=== PATIENT | male | born 1970 | race African-American/Black ===

== ENCOUNTER 2017-07-26 08:09 | Emergency (ER) | payer MEDICAID ==
[~2017-07-26] VITALS: Ht 177.8 cm; Wt 95.3 kg
[2017-07-26] MEDS ORDERED: cloNIDine HCL 0.1 MG TAB PO ONE (09:00)
[2017-07-26] MEDS ORDERED: SODIUM CHLORIDE 0.9% 1,000 ML IV ONE ×2 (10:11)
[2017-07-26] MEDS ORDERED: MORPHINE SULFATE 4 MG/ML SYR/VIAL IV ONE (10:15)
[2017-07-26] MEDS ORDERED: ONDANSETRON HCL 4 MG/2 ML VIAL IV ONE (10:15)
[2017-07-26 10:27] LABS: Basophils # (auto) 0 uL; Basophils % (auto) 0.4 % (0.0-2.0); Eosinophils # (auto) 0 uL; Hematocrit 48.3 % (41.0-53.0); Hemoglobin 16.2 g/dL (13.5-17.5); Lymphocytes # (auto) 1.3 uL; Lymphocytes % (auto) 14.8 % (10.0-50.0); Mean Corpuscular Hemoglobin 28.8 pg (28.0-32.0); Mean Corpuscular Hgb Conc. 33.5 g/dL (32.0-36.0); Mean Corpuscular Volume 85.8 fL (80.0-100.0); Monocytes # (auto) 0.5 uL; Monocytes % (auto) 5.5 % (0.0-12.0); Neutrophils # (auto) 6.9 uL; Neutrophils % (auto) 79.3 % (37.0-80.0); Nucleated Red Blood Cells % 0.2 %; Platelet Count (auto) 411 10^3/uL (140-450); Red Blood Cells 5.63 10^6/uL (4.5-5.90); Red Cell Distribution Width 14.8 % (11.8-14.3); White Blood Cell 8.7 10^3/uL (4.4-10.8)
[2017-07-26 10:38] LABS: INR 1.02 (0.9-1.15); Partial Thromboplastin Time 25.7 sec (22.64-33.71); Prothrombin Time 11.1 sec (9.37-12.3)
[2017-07-26 10:42] LABS: Alanine Aminotransferase 30 U/L (16-61); Albumin 4.4 g/dL (3.4-5.0); Alkaline Phosphatase 90 U/L (45-117); Anion Gap 9 (5-15); Aspartate Aminotransferase 23 U/L (15-37); BUN/Creatinine Ratio 11.1; Bilirubin, Total 0.7 mg/dL (0.2-1.0); Blood Urea Nitrogen 16 mg/dL (7-18); Calcium 9.2 mg/dL (8.5-10.1); Carbon Dioxide 24 mmol/L (21-32); Chloride 104 mmol/L (98-107); GFR African American 68 mL/min; GFR Non-African American 56 mL/min; Glucose 126 mg/dL (74-106); Potassium 4.1 mmol/L (3.5-5.1); Sodium 137 mmol/L (136-145); Total Protein 9.3 g/dL (6.4-8.2)
[2017-07-26] MEDS ORDERED: LABETALOL HCL 5 MG/ML ML 20ML VIAL IV ONE ×2 (12:45→16:45)
[2017-07-26] MEDS ORDERED: LORazepam 2MG/ML-1ML VIAL IV ONE (12:45)
[2017-07-26] MEDS ORDERED: hydrALAZINE HCL 20 MG/ML VL IV ONE (15:15)
[2017-07-26] MEDS ORDERED: HYDROcodone-ACET 10/325MG TAB PO ONE (15:45)
[2017-07-26 17:40] VITALS: BP 149/106
== END 2017-07-26 18:12 | disposition home or self-care (01) ==
LOC: ER 08:09
DX: I10 Essential (primary) hypertension (principal); R10.13 Epigastric pain
CPT/HCPCS: 36415; 71045; 74176; 80053; 82962; 84484; 85025; 85610; 85730; 93005; 96361; 96374; 96375; 96376; 99285; J0360; J2060; J2270; J2405; J7030

== ENCOUNTER 2017-10-16 16:19 | Inpatient (IN) | payer MEDICAID ==
[~2017-10-16] VITALS: Ht 180.3 cm; Wt 97.0 kg
[2017-10-16 17:11] LABS: Basophils # (auto) 0.1 uL; Basophils % (auto) 1.1 % (0.0-2.0); Eosinophils # (auto) 0.2 uL; Eosinophils % (auto) 1.5 % (0.0-7.0); Hematocrit 38.5 % (41.0-53.0); Hemoglobin 12.9 g/dL (13.5-17.5); Lymphocytes # (auto) 3.3 uL; Lymphocytes % (auto) 31.9 % (10.0-50.0); Mean Corpuscular Hgb Conc. 33.5 g/dL (32.0-36.0); Mean Corpuscular Volume 83.5 fL (80.0-100.0); Monocytes # (auto) 0.7 uL; Monocytes % (auto) 6.7 % (0.0-12.0); Neutrophils % (auto) 58.8 % (37.0-80.0); Nucleated Red Blood Cells % 0.1 %; Platelet Count (auto) 326 10^3/uL (140-450); Red Blood Cells 4.62 10^6/uL (4.5-5.90); White Blood Cell 10.2 10^3/uL (4.4-10.8)
[2017-10-16] MEDS ORDERED: SODIUM CHLORIDE 0.9% 1,000 ML IV SCH (17:13)
[2017-10-16] MEDS ORDERED: LORazepam 0.5 MG TAB PO PRN (17:15)
[2017-10-16] MEDS ORDERED: TEMAZEPAM 15 MG CAP PO PRN (17:15)
[2017-10-16] MEDS ORDERED: MORPHINE SULF INJ 2 MG/ML SYRINGE 1ML IV PRN ×2 (17:15)
[2017-10-16] MEDS ORDERED: NITROGLYCERIN 0.4 MG SL TAB SL PRN (17:15)
[2017-10-16] MEDS ORDERED: ACETAMINOPHEN 500 MG TAB PO PRN (17:15)
[2017-10-16 17:18] LABS: Amphetamine Screen, Urine NEGATIVE (NEGATIVE); Barbiturate Scree,Urine NEGATIVE (NEGATIVE); Benzodiazephine Screen, Urine NEGATIVE (NEGATIVE); Cannabinoid Screen, Urine POSITIVE (NEGATIVE); Cocaine Screen, Urine NEGATIVE (NEGATIVE); Opiate Scree,Urine NEGATIVE (NEGATIVE); Phencyclidine Screen, Urine NEGATIVE (NEGATIVE)
[2017-10-16 17:24] LABS: INR 1.01 (0.9-1.15); Partial Thromboplastin Time 26.1 sec (23.78-33.04); Prothrombin Time 10.8 sec (9.27-12.13)
[2017-10-16 17:33] LABS: Alanine Aminotransferase 28 U/L (16-61); Albumin 3.6 g/dL (3.4-5.0); Alkaline Phosphatase 65 U/L (45-117); Anion Gap 8 (5-15); Aspartate Aminotransferase 15 U/L (15-37); BUN/Creatinine Ratio 12.8; Bilirubin, Total 0.5 mg/dL (0.2-1.0); Blood Urea Nitrogen 15 mg/dL (7-18); Carbon Dioxide 27 mmol/L (21-32); Chloride 105 mmol/L (98-107); GFR African American 86 mL/min; GFR Non-African American 71 mL/min; Glucose 109 mg/dL (74-106); Magnesium 2.3 mg/dL (1.6-2.6); Sodium 140 mmol/L (136-145); Total Protein 7.3 g/dL (6.4-8.2)
[2017-10-16 17:37] LABS: Potassium 2.8 mmol/L (3.5-5.1)
[2017-10-16] MEDS ORDERED: ASPirin 81 mg TAB PO ONE (17:45)
[2017-10-16] MEDS ORDERED: POTASSIUM CHL 20 Meq TABLET PO ONE ×2 (17:45→18:00)
[2017-10-16] MEDS: HYDROcodone-ACET 5/325MG TAB PO PRN (18:05)
[2017-10-16] MEDS: PANTOPRAZOLE 40 MG TAB PO SCH (18:05)
[2017-10-16] MEDS: PROMETHAZINE HCL 25 MG/ML 1ML IV PRN (18:05)
[2017-10-16] MEDS: SOD CHL 0.9%/ KCL 40MEQ 1,000 ML IV SCH (18:05)
[2017-10-16] MEDS: POTASSIUM CHL 20MEQ/100ML 100 ML IV SCH ×2 (18:05→21:26)
[2017-10-16 19:07] LABS: Amylase 84 U/L (25-115); Lipase 203 U/L (73-393)
[2017-10-16 19:45] VITALS: BP 152/100
[2017-10-16 20:00] VITALS: BP 152/100
[2017-10-16] MEDS: ATORVASTATIN 20 MG TAB PO SCH (21:26)
[2017-10-16] MEDS: METOPROLOL TARTRATE 25 MG TAB PO SCH (21:27)
[2017-10-16 22:00] VITALS: BP 152/100
[2017-10-16] MEDS ORDERED: BENA5TAB5 PO (23:54)
[2017-10-17] MEDS: SOD CHL 0.9%/ KCL 40MEQ 1,000 ML IV SCH ×3 (04:26→21:31)
[2017-10-17 05:00] VITALS: BP 139/80
[2017-10-17] MEDS: PROMETHAZINE HCL 25 MG/ML 1ML IV PRN ×2 (05:18→11:35)
[2017-10-17 06:26] LABS: Cholesterol 97 mg/dL (< 200); HDL Cholesterol 37 mg/dL (40-59); LDL Cholesterol 59 mg/dL (< 100); Triglycerides 96 mg/dL (< 150)
[2017-10-17] MEDS ORDERED: AMLO5TAB2 PO (07:52)
[2017-10-17 09:00] VITALS: BP_SYST 137; BP_SYST 157; BP_DIAS 112; BP_DIAS 87
[2017-10-17] MEDS ORDERED: NITROGLYCERIN 0.2MG/HR TOPICAL PATCH TD SCH (10:00)
[2017-10-17] MEDS: ASPirin 81 mg TAB PO SCH (10:01)
[2017-10-17] MEDS: PANTOPRAZOLE 40 MG TAB PO SCH ×2 (10:01→21:30)
[2017-10-17] MEDS: HYDROcodone-ACET 5/325MG TAB PO PRN ×3 (10:01→23:34)
[2017-10-17] MEDS: ENOXAPARIN SOD 40 MG/0.4 ML SYRINGE SC SCH (10:01)
[2017-10-17] MEDS: METOPROLOL TARTRATE 25 MG TAB PO SCH ×2 (10:02→21:31)
[2017-10-17] MEDS ORDERED: IOHEXOL 350 MG/ML 100ML IJ ONE (10:03)
[2017-10-17 13:00] VITALS: BP 150/104
[2017-10-17 13:56] LABS: BUN/Creatinine Ratio 8.4; Calcium 8.4 mg/dL (8.5-10.1)
[2017-10-17 17:00] VITALS: BP 150/180
[2017-10-17] MEDS: NITROGLYCERIN 2% OINT 1GM PKG TD SCH ×2 (17:54→23:34)
[2017-10-17] MEDS: ATORVASTATIN 20 MG TAB PO SCH (21:30)
[2017-10-17 21:58] VITALS: BP 154/109
[2017-10-18] VITALS (7 sets, daily range): BP systolic 119–147; BP diastolic 54–95
[2017-10-18] MEDS: NITROGLYCERIN 2% OINT 1GM PKG TD SCH ×3 (05:51→17:47)
[2017-10-18] MEDS: HYDROcodone-ACET 5/325MG TAB PO PRN (06:47)
[2017-10-18] MEDS: ENALAPRIL MALEATE 2.5 MG TAB PO SCH (09:52)
[2017-10-18] MEDS: ENOXAPARIN SOD 40 MG/0.4 ML SYRINGE SC SCH (09:52)
[2017-10-18] MEDS: METOPROLOL TARTRATE 25 MG TAB PO SCH ×2 (09:53→22:05)
[2017-10-18] MEDS: ASPirin 81 mg TAB PO SCH (09:53)
[2017-10-18] MEDS: PANTOPRAZOLE 40 MG TAB PO SCH ×2 (09:53→22:05)
[2017-10-18] MEDS: SOD CHL 0.9%/ KCL 40MEQ 1,000 ML IV SCH ×2 (10:00→13:20)
[2017-10-18] MEDS: ATORVASTATIN 20 MG TAB PO SCH (22:05)
[2017-10-19] VITALS (7 sets, daily range): BP systolic 122–148; BP diastolic 78–95
[2017-10-19] MEDS: NITROGLYCERIN 2% OINT 1GM PKG TD SCH ×4 (00:07→17:46)
[2017-10-19] MEDS: HYDROcodone-ACET 5/325MG TAB PO PRN (00:08)
[2017-10-19] MEDS: SOD CHL 0.9%/ KCL 40MEQ 1,000 ML IV SCH ×3 (06:00→22:11)
[2017-10-19] MEDS: ENOXAPARIN SOD 40 MG/0.4 ML SYRINGE SC SCH (09:56)
[2017-10-19] MEDS: ENALAPRIL MALEATE 2.5 MG TAB PO SCH (09:57)
[2017-10-19] MEDS: PANTOPRAZOLE 40 MG TAB PO SCH ×2 (09:57→22:07)
[2017-10-19] MEDS: METOPROLOL TARTRATE 25 MG TAB PO SCH ×2 (09:57→22:08)
[2017-10-19] MEDS: ASPirin 81 mg TAB PO SCH (09:57)
[2017-10-19] MEDS: ATORVASTATIN 20 MG TAB PO SCH (22:07)
[2017-10-20] MEDS: HYDROcodone-ACET 5/325MG TAB PO PRN (00:38)
[2017-10-20 05:00] VITALS: BP 137/78
[2017-10-20] MEDS: NITROGLYCERIN 2% OINT 1GM PKG TD SCH ×4 (05:26→19:11)
[2017-10-20 06:29] LABS: Basophils # (auto) 0.1 uL; Basophils % (auto) 0.8 % (0.0-2.0); Eosinophils # (auto) 0.2 uL; Eosinophils % (auto) 3.3 % (0.0-7.0); Hematocrit 35.8 % (41.0-53.0); Hemoglobin 12.1 g/dL (13.5-17.5); Lymphocytes # (auto) 2.7 uL; Lymphocytes % (auto) 37.2 % (10.0-50.0); Mean Corpuscular Hemoglobin 28.7 pg (28.0-32.0); Mean Corpuscular Hgb Conc. 33.9 g/dL (32.0-36.0); Mean Corpuscular Volume 84.6 fL (80.0-100.0); Monocytes # (auto) 0.6 uL; Monocytes % (auto) 8.3 % (0.0-12.0); Neutrophils # (auto) 3.7 uL; Neutrophils % (auto) 50.4 % (37.0-80.0); Nucleated Red Blood Cells % 0.1 %; Platelet Count (auto) 348 10^3/uL (140-450); Red Blood Cells 4.23 10^6/uL (4.5-5.90); White Blood Cell 7.3 10^3/uL (4.4-10.8)
[2017-10-20 06:49] LABS: INR 0.94 (0.9-1.15); Partial Thromboplastin Time 25.9 sec (23.78-33.04); Prothrombin Time 10.1 sec (9.27-12.13)
[2017-10-20 06:56] LABS: Albumin 3.3 g/dL (3.4-5.0); BUN/Creatinine Ratio 10.9; Bilirubin, Total 0.4 mg/dL (0.2-1.0); Calcium 8.7 mg/dL (8.5-10.1); Potassium 4.5 mmol/L (3.5-5.1); Total Protein 6.8 g/dL (6.4-8.2)
[2017-10-20] MEDS: SOD CHL 0.9%/ KCL 40MEQ 1,000 ML IV SCH (07:58)
[2017-10-20 08:18] VITALS: BP 136/99
[2017-10-20] MEDS ORDERED: LIDOCAINE 2% (LOCAL ANESTH.) PF 5ml SDV ONE (10:22)
[2017-10-20] MEDS ORDERED: IODIXANOL 320MG/ML 100ML BTL IV ONE (10:22)
[2017-10-20] MEDS ORDERED: ANGIOMAX 250 MG VIAL IV ONE (10:35)
[2017-10-20] MEDS ORDERED: VERAPAMIL 2.5MG/ML INJ 2ML VIAL IV ONE (10:35)
[2017-10-20] MEDS ORDERED: fentaNYL CITRATE 100 MCG/2 ML VL ONE (10:36)
[2017-10-20] MEDS ORDERED: MIDAZOLAM HCL 1MG/1ML-2 ML VIAL ONE (10:36)
[2017-10-20] MEDS ORDERED: SODIUM CHL 0.9% 0 ML ONE (10:36)
[2017-10-20] MEDS ORDERED: HEPARIN SODIUM (PORCINE) 5000 UNITS/ML 1ML VIAL ONE (11:01)
[2017-10-20] MEDS ORDERED: DEXTROSE (50%) 50ML SYRG IV PRN (12:00)
[2017-10-20] MEDS: PANTOPRAZOLE 40 MG TAB PO SCH ×2 (14:21→21:37)
[2017-10-20] MEDS: ENALAPRIL MALEATE 2.5 MG TAB PO SCH (14:21)
[2017-10-20] MEDS: METOPROLOL TARTRATE 25 MG TAB PO SCH ×2 (14:21→21:37)
[2017-10-20] MEDS: ASPirin 81 mg TAB PO SCH (14:22)
[2017-10-20] MEDS: ENOXAPARIN SOD 40 MG/0.4 ML SYRINGE SC SCH (14:22)
[2017-10-20 14:26] VITALS: BP 158/92
[2017-10-20] MEDS ORDERED: ACCU-CHEK COMFORT CURVE STRIP VI SCH (17:00)
[2017-10-20] MEDS ORDERED: InsuLIN REG 1unit/0.01ml Soln (100units/ml) SC SCH (17:00)
[2017-10-20 17:26] VITALS: BP 144/94
[2017-10-20] MEDS: ATORVASTATIN 20 MG TAB PO SCH (21:37)
[2017-10-20 22:00] VITALS: BP 135/99
[2017-10-21] MEDS: NITROGLYCERIN 2% OINT 1GM PKG TD SCH ×5 (00:35→23:45)
[2017-10-21 05:00] VITALS: BP 112/80
[2017-10-21 06:30] LABS: Basophils # (auto) 0.1 uL; Basophils % (auto) 0.7 % (0.0-2.0); Eosinophils # (auto) 0.3 uL; Eosinophils % (auto) 4.1 % (0.0-7.0); Hematocrit 36.6 % (41.0-53.0); Hemoglobin 12.4 g/dL (13.5-17.5); Lymphocytes # (auto) 2.4 uL; Lymphocytes % (auto) 33.4 % (10.0-50.0); Mean Corpuscular Hemoglobin 28.2 pg (28.0-32.0); Mean Corpuscular Hgb Conc. 33.8 g/dL (32.0-36.0); Mean Corpuscular Volume 83.5 fL (80.0-100.0); Monocytes # (auto) 0.5 uL; Monocytes % (auto) 7.1 % (0.0-12.0); Neutrophils # (auto) 3.9 uL; Neutrophils % (auto) 54.7 % (37.0-80.0); Nucleated Red Blood Cells % 0.2 %; Platelet Count (auto) 376 10^3/uL (140-450); Red Blood Cells 4.38 10^6/uL (4.5-5.90); Red Cell Distribution Width 16.2 % (11.8-14.3); White Blood Cell 7.2 10^3/uL (4.4-10.8)
[2017-10-21 07:08] LABS: Albumin 3.4 g/dL (3.4-5.0); BUN/Creatinine Ratio 13.3; Bilirubin, Total 0.3 mg/dL (0.2-1.0); Calcium 8.5 mg/dL (8.5-10.1); Potassium 4.2 mmol/L (3.5-5.1); Total Protein 7.1 g/dL (6.4-8.2)
[2017-10-21 08:00] VITALS: BP 147/85
[2017-10-21] MEDS: PANTOPRAZOLE 40 MG TAB PO SCH ×2 (10:18→21:39)
[2017-10-21] MEDS: METOPROLOL TARTRATE 25 MG TAB PO SCH ×2 (10:18→21:39)
[2017-10-21] MEDS: ASPirin 81 mg TAB PO SCH (10:19)
[2017-10-21] MEDS: ENOXAPARIN SOD 40 MG/0.4 ML SYRINGE SC SCH (10:19)
[2017-10-21] MEDS: ENALAPRIL MALEATE 2.5 MG TAB PO SCH (10:19)
[2017-10-21 12:51] VITALS: BP 146/100
[2017-10-21] MEDS: HYDROcodone-ACET 5/325MG TAB PO PRN (13:10)
[2017-10-21 18:00] VITALS: BP 134/96
[2017-10-21 18:08] VITALS: BP 146/100
[2017-10-21 18:09] VITALS: BP 145/99
[2017-10-21] MEDS: ATORVASTATIN 20 MG TAB PO SCH (21:39)
[2017-10-22] VITALS (7 sets, daily range): BP systolic 118–140; BP diastolic 40–96
[2017-10-22 06:02] LABS: Basophils # (auto) 0.1 uL; Basophils % (auto) 0.8 % (0.0-2.0); Eosinophils # (auto) 0.3 uL; Eosinophils % (auto) 4.2 % (0.0-7.0); Hematocrit 36.4 % (41.0-53.0); Hemoglobin 12.4 g/dL (13.5-17.5); Lymphocytes # (auto) 2.6 uL; Lymphocytes % (auto) 38.7 % (10.0-50.0); Mean Corpuscular Hemoglobin 28.6 pg (28.0-32.0); Mean Corpuscular Hgb Conc. 34.1 g/dL (32.0-36.0); Monocytes # (auto) 0.5 uL; Monocytes % (auto) 7.6 % (0.0-12.0); Neutrophils # (auto) 3.3 uL; Neutrophils % (auto) 48.7 % (37.0-80.0); Nucleated Red Blood Cells % 0.2 %; Platelet Count (auto) 362 10^3/uL (140-450); Red Blood Cells 4.34 10^6/uL (4.5-5.90); Red Cell Distribution Width 16.4 % (11.8-14.3); White Blood Cell 6.8 10^3/uL (4.4-10.8)
[2017-10-22] MEDS: NITROGLYCERIN 2% OINT 1GM PKG TD SCH ×2 (06:10→12:14)
[2017-10-22 06:14] LABS: Potassium 4.1 mmol/L (3.5-5.1)
[2017-10-22 06:19] LABS: BUN/Creatinine Ratio 12.1; Calcium 8.2 mg/dL (8.5-10.1)
[2017-10-22] MEDS: ENALAPRIL MALEATE 2.5 MG TAB PO SCH (10:00)
[2017-10-22] MEDS: ASPirin 81 mg TAB PO SCH (10:44)
[2017-10-22] MEDS: PANTOPRAZOLE 40 MG TAB PO SCH ×2 (10:44→21:54)
[2017-10-22] MEDS: METOPROLOL TARTRATE 25 MG TAB PO SCH ×2 (10:44→21:54)
[2017-10-22] MEDS: ENOXAPARIN SOD 40 MG/0.4 ML SYRINGE SC SCH (10:45)
[2017-10-22] MEDS: ATORVASTATIN 20 MG TAB PO SCH (21:53)
[2017-10-22] MEDS: SODIUM CHLORIDE 0.9% 1,000 ML IV SCH (21:53)
[2017-10-23 05:04] VITALS: BP 130/84
[2017-10-23 06:01] LABS: INR 0.94 (0.9-1.15); Partial Thromboplastin Time 25.6 sec (23.78-33.04); Prothrombin Time 10.1 sec (9.27-12.13)
[2017-10-23 06:10] LABS: BUN/Creatinine Ratio 14.2; Potassium 4.2 mmol/L (3.5-5.1)
[2017-10-23] MEDS: SODIUM CHLORIDE 0.9% 1,000 ML IV SCH (08:00)
[2017-10-23] MEDS ORDERED: FLUMAZENIL 0.1 MG/ML INJ 10ML MDV IV ONE (08:12)
[2017-10-23] MEDS ORDERED: SODIUM CHLORIDE LOCK 10 ML ONE (08:12)
[2017-10-23] MEDS ORDERED: LIDOCAINE VISCOUS 2% 15ML UD ONE (08:12)
[2017-10-23] MEDS ORDERED: NALOXONE HCL 0.4 MG/ML VIAL ONE (08:12)
[2017-10-23] MEDS ORDERED: diphenhdrAMINE HCL 50 MG/1 ML VL ONE (08:12)
[2017-10-23] MEDS: MIDAZOLAM HCL 5 MG/ML-1ML VIAL ONE ×2 (08:56→08:59)
[2017-10-23] MEDS: fentaNYL CITRATE 100 MCG/2 ML VL ONE ×2 (08:56→08:59)
[2017-10-23 09:00] VITALS: BP 139/93
[2017-10-23] MEDS: ASPirin 81 mg TAB PO SCH (10:09)
[2017-10-23] MEDS: METOPROLOL TARTRATE 25 MG TAB PO SCH (10:10)
[2017-10-23] MEDS: ENALAPRIL MALEATE 2.5 MG TAB PO SCH (10:10)
[2017-10-23] MEDS: PANTOPRAZOLE 40 MG TAB PO SCH (10:10)
[2017-10-23] MEDS: ENOXAPARIN SOD 40 MG/0.4 ML SYRINGE SC SCH (10:11)
[2017-10-23] MEDS: PROMETHAZINE HCL 25 MG/ML 1ML IV PRN (10:11)
[2017-10-23] MEDS ORDERED: PANT40TA2 PO (12:21)
[2017-10-23 13:00] VITALS: BP 133/78
[2017-10-23 17:00] VITALS: BP 136/76
== END 2017-10-23 17:28 | disposition home or self-care (01) | DRG 192 ==
LOC: ER 16:19 → EDBD 16:19 → TELE 16:20 → TELE-WESTW 19:35 → WEST WING 10-22 14:36
PROVIDERS: ADMIT Internal Medicine; ATTEND Internal Medicine
PROC: 4A023N7 Measurement of Cardiac Sampling and Pressure, Left Heart, Percutaneous Approach (ICD-10-PCS; principal; 2017-10-20)
PROC: B2111ZZ Fluoroscopy of Multiple Coronary Arteries using Low Osmolar Contrast (ICD-10-PCS; 2017-10-20)
PROC: B2151ZZ Fluoroscopy of Left Heart using Low Osmolar Contrast (ICD-10-PCS; 2017-10-20)
PROC: 0DB68ZX Excision of Stomach, Via Natural or Artificial Opening Endoscopic, Diagnostic (ICD-10-PCS; 2017-10-23)
DX: R07.89 Other chest pain (principal); N17.0 Acute kidney failure with tubular necrosis; K25.9 Gastric ulcer, unspecified as acute or chronic, without hemorrhage or perforation; K29.70 Gastritis, unspecified, without bleeding; E44.0 Moderate protein-calorie malnutrition; E11.22 Type 2 diabetes mellitus with diabetic chronic kidney disease; E87.6 Hypokalemia; N18.2 Chronic kidney disease, stage 2 (mild); J45.909 Unspecified asthma, uncomplicated; G89.29 Other chronic pain; E83.51 Hypocalcemia; I12.9 Hypertensive chronic kidney disease with stage 1 through stage 4 chronic kidney disease, or unspecified chronic kidney disease; F12.90 Cannabis use, unspecified, uncomplicated; Z79.82 Long term (current) use of aspirin; Z79.899 Other long term (current) drug therapy; Z82.49 Family history of ischemic heart disease and other diseases of the circulatory system; Z68.29 Body mass index [BMI] 29.0-29.9, adult
CPT/HCPCS: 36415; 71045; 71275; 76700; 80048; 80053; 80061; 80307; 82150; 82550; 82962; 83036; 83690; 83735; 83880; 84443; 84484; 85025; 85379; 85610; 85652; 85730; 86141; 93005; 93970; 94761; 96360; 96372; 99152; J2250; J3480; Q9967

== ENCOUNTER 2018-01-27 19:57 | Emergency (ER) | payer MEDICAID ==
[~2018-01-27] VITALS: Ht 180.3 cm; Wt 106.1 kg
[~2018-01-27 19:57] MED LIST: AMLO5TAB13 PO; PANT40TA2 PO
[2018-01-27 21:38] LABS: Basophils # (auto) 0.1 uL; Basophils % (auto) 1.1 % (0.0-2.0); Eosinophils # (auto) 0.4 uL; Eosinophils % (auto) 5.3 % (0.0-7.0); Hematocrit 39.2 % (41.0-53.0); Hemoglobin 13.1 g/dL (13.5-17.5); Lymphocytes # (auto) 2.6 uL; Lymphocytes % (auto) 36.4 % (10.0-50.0); Mean Corpuscular Hemoglobin 27.8 pg (28.0-32.0); Mean Corpuscular Hgb Conc. 33.3 g/dL (32.0-36.0); Mean Corpuscular Volume 83.5 fL (80.0-100.0); Monocytes # (auto) 0.5 uL; Monocytes % (auto) 7.4 % (0.0-12.0); Neutrophils # (auto) 3.5 uL; Neutrophils % (auto) 49.8 % (37.0-80.0); Nucleated Red Blood Cells % 0.2 %; Platelet Count (auto) 334 10^3/uL (140-450); Red Cell Distribution Width 18.9 % (11.8-14.3)
[2018-01-27 21:56] LABS: Albumin 3.4 g/dL (3.4-5.0); Calcium 8.1 mg/dL (8.5-10.1); Potassium 4.2 mmol/L (3.5-5.1)
[2018-01-27 21:58] LABS: BUN/Creatinine Ratio 9.6; INR 0.91 (0.9-1.15); Partial Thromboplastin Time 27.2 sec (23.78-33.04); Prothrombin Time 9.8 sec (9.27-12.13)
[2018-01-27 22:01] LABS: Bilirubin, Total 0.2 mg/dL (0.2-1.0); Total Protein 7.6 g/dL (6.4-8.2)
[2018-01-28 00:41] VITALS: BP 142/95
[2018-01-28] MEDS ORDERED: MORPHINE SULFATE 4 MG/ML SYR/VIAL IV ONE (02:00)
[2018-01-28] MEDS ORDERED: ONDANSETRON HCL 4 MG/2 ML VIAL IV ONE (02:00)
== END 2018-01-28 02:29 | disposition home or self-care (01) ==
LOC: ER 19:57
DX: R07.89 Other chest pain (principal); M79.89 Other specified soft tissue disorders; J45.909 Unspecified asthma, uncomplicated; E11.9 Type 2 diabetes mellitus without complications; K21.9 Gastro-esophageal reflux disease without esophagitis; I10 Essential (primary) hypertension; Z79.899 Other long term (current) drug therapy
CPT/HCPCS: 36415; 71250; 80053; 85025; 85610; 85730; 96374; 96375; 99285; J2270; J2405

== ENCOUNTER 2018-03-12 11:13 | Emergency (ER) | payer MEDICAID ==
[~2018-03-12] VITALS: Ht 177.8 cm; Wt 108.0 kg
[2018-03-12] MEDS ORDERED: PANTOPRAZOLE 40 MG/10 ML VIAL IV STA (11:32)
[2018-03-12] MEDS ORDERED: SODIUM CHLORIDE 0.9% 1,000 ML IVB ONE (11:32)
[2018-03-12] MEDS ORDERED: PROCHLORPERAZINE EDISYLATE 5 MG/ML 2ML VIAL IV ONE (11:45)
[2018-03-12] MEDS ORDERED: MORPHINE SULFATE 4 MG/ML SYR/VIAL IV ONE (11:45)
[2018-03-12 12:06] LABS: Basophils # (auto) 0.1 uL; Basophils % (auto) 1.6 % (0.0-2.0); Eosinophils # (auto) 0 uL; Eosinophils % (auto) 0.2 % (0.0-7.0); Hematocrit 45.7 % (41.0-53.0); Hemoglobin 15.5 g/dL (13.5-17.5); Lymphocytes % (auto) 23.5 % (10.0-50.0); Mean Corpuscular Hemoglobin 28.2 pg (28.0-32.0); Mean Corpuscular Hgb Conc. 33.9 g/dL (32.0-36.0); Mean Corpuscular Volume 83.2 fL (80.0-100.0); Monocytes # (auto) 0.1 uL; Monocytes % (auto) 2.8 % (0.0-12.0); Neutrophils # (auto) 3.1 uL; Neutrophils % (auto) 71.9 % (37.0-80.0); Nucleated Red Blood Cells % 0.1 %; Platelet Count (auto) 287 10^3/uL (140-450); Red Blood Cells 5.49 10^6/uL (4.5-5.90); Red Cell Distribution Width 19.2 % (11.8-14.3); White Blood Cell 4.2 10^3/uL (4.4-10.8)
[2018-03-12 12:28] LABS: Calcium 8.5 mg/dL (8.5-10.1); Magnesium 2.4 mg/dL (1.6-2.6); Potassium 3.6 mmol/L (3.5-5.1)
[2018-03-12 12:33] LABS: Bilirubin, Total 0.8 mg/dL (0.2-1.0); Total Protein 8.2 g/dL (6.4-8.2)
[2018-03-12 13:54] VITALS: BP 157/97
== END 2018-03-12 13:57 | disposition home or self-care (01) ==
LOC: ER 11:13
DX: R11.2 Nausea with vomiting, unspecified (principal); J45.909 Unspecified asthma, uncomplicated; E11.9 Type 2 diabetes mellitus without complications; K21.9 Gastro-esophageal reflux disease without esophagitis; I10 Essential (primary) hypertension; F12.10 Cannabis abuse, uncomplicated; Z92.21 Personal history of antineoplastic chemotherapy
CPT/HCPCS: 36415; 74176; 80053; 82150; 83690; 83735; 85025; 94761; 96361; 96374; 96375; 99284; C9113; J0780; J2270; J7030

== ENCOUNTER 2018-03-14 12:27 | Emergency (ER) | payer MEDICAID ==
[~2018-03-14] VITALS: Ht 177.8 cm; Wt 108.9 kg
[2018-03-14 13:40] LABS: Basophils # (auto) 0.1 uL; Basophils % (auto) 1.3 % (0.0-2.0); Eosinophils # (auto) 0.1 uL; Eosinophils % (auto) 3.1 % (0.0-7.0); Hematocrit 47.3 % (41.0-53.0); Hemoglobin 15.6 g/dL (13.5-17.5); Lymphocytes # (auto) 2.1 uL; Lymphocytes % (auto) 47.7 % (10.0-50.0); Mean Corpuscular Hemoglobin 27.5 pg (28.0-32.0); Mean Corpuscular Hgb Conc. 33.1 g/dL (32.0-36.0); Mean Corpuscular Volume 83.3 fL (80.0-100.0); Monocytes # (auto) 0.1 uL; Monocytes % (auto) 2.5 % (0.0-12.0); Neutrophils % (auto) 45.4 % (37.0-80.0); Nucleated Red Blood Cells % 0.1 %; Platelet Count (auto) 286 10^3/uL (140-450); Red Blood Cells 5.68 10^6/uL (4.5-5.90); Red Cell Distribution Width 17.8 % (11.8-14.3); White Blood Cell 4.3 10^3/uL (4.4-10.8)
[2018-03-14] MEDS ORDERED: ONDANSETRON HCL 4 MG/2 ML VIAL IV ONE (13:45)
[2018-03-14] MEDS ORDERED: amLODIPine BESYLATE 5 MG TAB PO ONE (13:45)
[2018-03-14] MEDS ORDERED: HYDROmorphone HCL 2 MG/ML VL IV ONE (13:45)
[2018-03-14 14:01] LABS: Albumin 4.1 g/dL (3.4-5.0); Calcium 8.9 mg/dL (8.5-10.1); Potassium 3.5 mmol/L (3.5-5.1)
[2018-03-14 14:02] LABS: INR 0.95 (0.9-1.15); Partial Thromboplastin Time 26.6 sec (23.78-33.04); Prothrombin Time 10.2 sec (9.27-12.13)
[2018-03-14 14:05] LABS: BUN/Creatinine Ratio 13.9; Bilirubin, Total 0.9 mg/dL (0.2-1.0); Total Protein 8.5 g/dL (6.4-8.2)
[2018-03-14 14:18] VITALS: BP 146/90
== END 2018-03-14 14:41 | disposition home or self-care (01) ==
LOC: ER 12:27
DX: G89.4 Chronic pain syndrome (principal); E11.9 Type 2 diabetes mellitus without complications; I10 Essential (primary) hypertension; K21.9 Gastro-esophageal reflux disease without esophagitis; F12.10 Cannabis abuse, uncomplicated
CPT/HCPCS: 36415; 80053; 84484; 85025; 85610; 85730; 93005; 94761; 96374; 96375; 99284; J1170; J2405

== ENCOUNTER 2018-07-07 12:42 | Emergency (ER) | payer MEDICAID | END 2018-07-07 13:00 | disposition left against medical advice (07) | LOC: ER 12:53 | DX: R07.9 Chest pain, unspecified (principal); Z53.21 Procedure and treatment not carried out due to patient leaving prior to being seen by health care provider ==

== ENCOUNTER 2019-02-15 12:28 | Emergency (ER) | payer MEDICAID ==
[~2019-02-15] VITALS: Ht 177.8 cm; Wt 105.7 kg
[~2019-02-15 12:28] MED LIST changes: -AMLO5TAB13 PO; +AMLO5TAB15 PO
[2019-02-15 13:43] VITALS: BP 139/97
[2019-02-15] MEDS ORDERED: ACETAMINOPHEN/CODEINE#3 (300/30mg) TAB PO ONE (15:45)
[2019-02-15] MEDS ORDERED: TETRACAINE HCL 0.5% OPTH(EYE) SOLN 4ML LEFTEYE ONE (15:45)
[2019-02-15] MEDS ORDERED: FLUORESCEIN SOD 1 MG TEST STRIP LEFTEYE ONE (15:45)
== END 2019-02-15 16:27 | disposition home or self-care (01) ==
LOC: ER 12:32
DX: S05.02XA Injury of conjunctiva and corneal abrasion without foreign body, left eye, initial encounter (principal); J45.909 Unspecified asthma, uncomplicated; E11.9 Type 2 diabetes mellitus without complications; K21.9 Gastro-esophageal reflux disease without esophagitis; I10 Essential (primary) hypertension; Z79.899 Other long term (current) drug therapy; W22.8XXA Striking against or struck by other objects, initial encounter; Y93.89 Activity, other specified; Y92.89 Other specified places as the place of occurrence of the external cause; Y99.8 Other external cause status

== ENCOUNTER 2019-04-07 09:13 | Emergency (ER) | payer MEDICAID ==
[~2019-04-07] VITALS: Ht 177.8 cm; Wt 106.6 kg
[2019-04-07 09:24] VITALS: BP 122/81
[2019-04-07] MEDS ORDERED: KETOROLAC TROMETH 60MG/2ML VIAL IM ONE (10:15)
[2019-04-07] MEDS ORDERED: METHOCARBAMOL 500 MG TAB PO ONE (10:15)
== END 2019-04-07 10:44 | disposition home or self-care (01) ==
LOC: ER 09:17
DX: M54.41 Lumbago with sciatica, right side (principal); E11.9 Type 2 diabetes mellitus without complications; K21.9 Gastro-esophageal reflux disease without esophagitis; I10 Essential (primary) hypertension; F12.10 Cannabis abuse, uncomplicated; X50.3XXA Overexertion from repetitive movements, initial encounter; Y93.89 Activity, other specified; Y99.8 Other external cause status; Y92.89 Other specified places as the place of occurrence of the external cause
CPT/HCPCS: 93005; 96372; 99283; J1885

== ENCOUNTER 2022-01-14 18:07 | Emergency (ER) | payer MEDICAID ==
[~2022-01-14] VITALS: Ht 177.8 cm; Wt 100.0 kg
[~2022-01-14 18:07] MED LIST changes: +AMLO-489 PO; -AMLO5TAB15 PO
[2022-01-14 21:23] VITALS: BP 125/86
[2022-01-14] MEDS ORDERED: IBUP800T27 PO (22:16)
== END 2022-01-14 22:28 | disposition home or self-care (01) ==
LOC: ER 18:08
DX: M71.521 Other bursitis, not elsewhere classified, right elbow (principal); M25.521 Pain in right elbow; E11.9 Type 2 diabetes mellitus without complications; I10 Essential (primary) hypertension
CPT/HCPCS: 29105; 73080

== ENCOUNTER 2022-04-23 21:37 | Inpatient (IN) | payer MEDICAID ==
[~2022-04-23] VITALS: Ht 177.8 cm; Wt 100.0 kg
[~2022-04-23 21:37] MED LIST changes: +IBUP800T27 PO
[2022-04-23 21:40] VITALS: BP 127/89
[2022-04-23 22:19] LABS: Basophils # (auto) 0.1 10 ^3/uL (0-0.2); Basophils % (auto) 0.8 % (0.0-2.0); Eosinophils # (auto) 0.3 10 ^3/uL (0-0.8); Eosinophils % (auto) 4.1 % (0.0-7.0); Hematocrit 43.6 % (41.0-53.0); Hemoglobin 15.5 g/dL (13.5-17.5); Lymphocytes # (auto) 2.8 10 ^3/uL (0.4-5.4); Lymphocytes % (auto) 35.9 % (10.0-50.0); Mean Corpuscular Hemoglobin 30.3 pg (28.0-32.0); Mean Corpuscular Hgb Conc. 35.4 g/dL (32.0-36.0); Mean Corpuscular Volume 85.4 fL (80.0-100.0); Monocytes # (auto) 0.5 10 ^3/uL (0-1.3); Neutrophils # (auto) 4.1 10 ^3/uL (1.6-8.6); Neutrophils % (auto) 53.2 % (37.0-80.0); Nucleated Red Blood Cells % 0.2 %; Red Blood Cells 5.11 10^6/uL (4.5-5.90); Red Cell Distribution Width 13.2 % (11.8-14.3); White Blood Cell 7.7 10^3/uL (4.4-10.8)
[2022-04-23 22:31] LABS: Albumin 3.9 g/dL (3.4-5.0); BUN/Creatinine Ratio 13.7; Calcium 8.9 mg/dL (8.5-10.1); Magnesium 2.2 mg/dL (1.6-2.6); Potassium 3.3 mmol/L (3.5-5.1)
[2022-04-23 22:34] LABS: Bilirubin, Total 0.6 mg/dL (0.2-1.0)
[2022-04-23 22:52] LABS: INR 0.96 (0.9-1.15); Partial Thromboplastin Time 27.4 sec (24.6-33.4)
[2022-04-24 00:18] LABS: Urine Bacteria NONE SEEN /hpf (None Seen); Urine Blood Negative /uL (Negative); Urine Specific Gravity 1.033 (1.001-1.035); Urine WBC 2 /hpf (0 - 3)
[2022-04-24] MEDS ORDERED: InsuLIN REG 1unit/0.01ml Soln (100units/ml) IV ONE (05:30)
[2022-04-24] MEDS ORDERED: SODIUM CHLORIDE 0.9% 1,000 ML IV ONE (05:30)
[2022-04-24] MEDS ORDERED: MORPHINE SULFATE 4 MG/ML SYR/VIAL IV PRN (05:45)
[2022-04-24] MEDS ORDERED: ZOLPIDEM TARTRATE 5 MG TAB PO PRN (05:45)
[2022-04-24] MEDS ORDERED: NITROGLYCERIN 0.4 MG SL TAB SL PRN (05:45)
[2022-04-24] MEDS ORDERED: DEXTROSE (50%) 50ML SYRG IV PRN (05:45)
[2022-04-24] MEDS ORDERED: LORazepam 0.5 MG TAB PO PRN (05:45)
[2022-04-24] MEDS ORDERED: ONDANSETRON HCL 4 MG/2 ML VIAL IV PRN (05:45)
[2022-04-24] MEDS ORDERED: ACETAMINOPHEN 325 MG TAB PO PRN (05:45)
[2022-04-24] MEDS ORDERED: SOD CHL 0.45% 1,000 ML IV SCH (05:45)
[2022-04-24] MEDS ORDERED: ACCU-CHEK COMFORT CURVE STRIP VI SCH (07:00)
[2022-04-24] MEDS ORDERED: InsuLIN REG 1unit/0.01ml Soln (100units/ml) SC SCH ×2 (07:00→22:00)
[2022-04-24] MEDS ORDERED: DOCUSATE SOD 100 MG CAP PO SCH (10:00)
[2022-04-24] MEDS ORDERED: ENOXAPARIN SOD 100 MG/1 ML SYRINGE SC SCH (10:00)
[2022-04-24] MEDS ORDERED: CLOPIDOGREL BISULFATE 75 MG TAB PO SCH (10:00)
[2022-04-24] MEDS ORDERED: ASPirin 81 mg TAB PO SCH (10:00)
[2022-04-24] MEDS ORDERED: ATORVASTATIN 20 MG TAB PO SCH (22:00)
[2022-04-25] MEDS ORDERED: METF-370 PO (12:45)
[2022-04-25] MEDS ORDERED: CEPH500C PO (12:47)
== END 2022-04-24 10:30 | disposition left against medical advice (07) | DRG 190 ==
LOC: ER 21:37 → TELE 04-24 05:33
PROVIDERS: ADMIT Hospitalist; ATTEND Internal Medicine Pulmonary Disease
DX: I21.4 Non-ST elevation (NSTEMI) myocardial infarction (principal); E11.65 Type 2 diabetes mellitus with hyperglycemia; E66.9 Obesity, unspecified; Z53.29 Procedure and treatment not carried out because of patient's decision for other reasons; I10 Essential (primary) hypertension; Z85.028 Personal history of other malignant neoplasm of stomach; Z88.8 Allergy status to other drugs, medicaments and biological substances; Z68.31 Body mass index [BMI] 31.0-31.9, adult
CPT/HCPCS: 36415; 71045; 80053; 81001; 83735; 83880; 84484; 85025; 85610; 85730; 87426; 93005; G0378

== ENCOUNTER 2022-04-25 11:06 | Emergency (ER) | payer MEDICAID ==
[~2022-04-25] VITALS: Ht 180.3 cm; Wt 99.5 kg
[2022-04-25 11:45] LABS: Basophils # (auto) 0.1 10 ^3/uL (0-0.2); Basophils % (auto) 0.7 % (0.0-2.0); Eosinophils # (auto) 0.2 10 ^3/uL (0-0.8); Eosinophils % (auto) 2.5 % (0.0-7.0); Hematocrit 47.9 % (41.0-53.0); Hemoglobin 16.4 g/dL (13.5-17.5); Lymphocytes # (auto) 2.6 10 ^3/uL (0.4-5.4); Lymphocytes % (auto) 33.8 % (10.0-50.0); Mean Corpuscular Hemoglobin 29.8 pg (28.0-32.0); Mean Corpuscular Hgb Conc. 34.3 g/dL (32.0-36.0); Monocytes # (auto) 0.4 10 ^3/uL (0-1.3); Monocytes % (auto) 5.8 % (0.0-12.0); Neutrophils # (auto) 4.4 10 ^3/uL (1.6-8.6); Neutrophils % (auto) 57.2 % (37.0-80.0); Nucleated Red Blood Cells % 0.1 %; Red Blood Cells 5.51 10^6/uL (4.5-5.90); Red Cell Distribution Width 13.7 % (11.8-14.3); White Blood Cell 7.7 10^3/uL (4.4-10.8)
[2022-04-25] MEDS ORDERED: SODIUM CHLORIDE 0.9% 1,000 ML IV ONE (11:45)
[2022-04-25 12:01] LABS: Urine Bacteria NONE SEEN /hpf (None Seen); Urine Blood Negative /uL (Negative); Urine Hyaline Cast FEW /lpf (0 - 2); Urine Mucus FEW (None Seen); Urine Specific Gravity 1.024 (1.001-1.035); Urine WBC 8 /hpf (0 - 3)
[2022-04-25 12:09] LABS: Albumin 4.3 g/dL (3.4-5.0); BUN/Creatinine Ratio 15.8; Calcium 9.1 mg/dL (8.5-10.1); Potassium 3.3 mmol/L (3.5-5.1)
[2022-04-25 12:12] LABS: Bilirubin, Total 0.7 mg/dL (0.2-1.0); Total Protein 8.7 g/dL (6.4-8.2)
[2022-04-25] MEDS ORDERED: METF-370 PO (12:45)
[2022-04-25] MEDS ORDERED: metFORMIN HYDROCHLORIDE 500 MG TAB PO ONE (12:45)
[2022-04-25] MEDS ORDERED: CEPH500C PO (12:47)
[2022-04-25 14:06] VITALS: BP 131/80
== END 2022-04-25 14:08 | disposition home or self-care (01) ==
LOC: ER 11:06
DX: E11.65 Type 2 diabetes mellitus with hyperglycemia (principal); I10 Essential (primary) hypertension; Z79.1 Long term (current) use of non-steroidal anti-inflammatories (NSAID); Z79.899 Other long term (current) drug therapy; Z88.8 Allergy status to other drugs, medicaments and biological substances
CPT/HCPCS: 36415; 80053; 81001; 82962; 85025; 96360; 99283; J7030

== ENCOUNTER 2022-08-28 11:39 | Emergency (ER) | payer MEDICAID ==
[~2022-08-28] VITALS: Ht 177.8 cm; Wt 90.0 kg
[~2022-08-28 11:39] MED LIST changes: +CEPH500C PO; +METF-370 PO
[2022-08-28 12:07] LABS: Basophils # (auto) 0.1 10 ^3/uL (0-0.2); Basophils % (auto) 0.8 % (0.0-2.0); Eosinophils # (auto) 0 10 ^3/uL (0-0.8); Eosinophils % (auto) 0.4 % (0.0-7.0); Hematocrit 46.1 % (41.0-53.0); Hemoglobin 15.7 g/dL (13.5-17.5); Lymphocytes # (auto) 0.8 10 ^3/uL (0.4-5.4); Lymphocytes % (auto) 12.2 % (10.0-50.0); Mean Corpuscular Hemoglobin 30.1 pg (28.0-32.0); Mean Corpuscular Hgb Conc. 34.2 g/dL (32.0-36.0); Monocytes # (auto) 0.2 10 ^3/uL (0-1.3); Monocytes % (auto) 2.3 % (0.0-12.0); Neutrophils # (auto) 5.7 10 ^3/uL (1.6-8.6); Neutrophils % (auto) 84.3 % (37.0-80.0); Nucleated Red Blood Cells % 0.1 %; Red Blood Cells 5.24 10^6/uL (4.5-5.90); Red Cell Distribution Width 14.5 % (11.8-14.3); White Blood Cell 6.7 10^3/uL (4.4-10.8)
[2022-08-28 12:43] LABS: Albumin 4.3 g/dL (3.4-5.0); Calcium 9.4 mg/dL (8.5-10.1); Magnesium 2.1 mg/dL (1.6-2.6); Potassium 3.9 mmol/L (3.5-5.1)
[2022-08-28 12:46] LABS: BUN/Creatinine Ratio 9.6 (10.0-20.0); Bilirubin, Total 0.5 mg/dL (0.2-1.0)
[2022-08-28 13:36] LABS: Urine Bacteria NONE SEEN /hpf (None Seen); Urine Blood Negative /uL (Negative); Urine Mucus FEW (None Seen); Urine Specific Gravity 1.021 (1.001-1.035); Urine WBC 2 /hpf (0 - 3)
[2022-08-28 13:44] VITALS: BP 146/99
[2022-08-28] MEDS ORDERED: ONDANSETRON ODT 4 MG TAB PO ONE (15:00)
[2022-08-28] MEDS ORDERED: MAALOX PLUS or MAALOX 30 ML PO ONE (15:00)
[2022-08-28] MEDS ORDERED: FAMOTIDINE 20 MG TAB PO ONE (15:00)
[2022-08-28] MEDS ORDERED: LIDOCAINE VISCOUS 2% 15ML UD PO ONE (15:00)
[2022-08-28] MEDS ORDERED: ONDA-144 PO (17:32)
== END 2022-08-28 17:58 | disposition home or self-care (01) ==
LOC: ER 11:39
DX: R11.2 Nausea with vomiting, unspecified (principal); E11.9 Type 2 diabetes mellitus without complications; I10 Essential (primary) hypertension; F12.10 Cannabis abuse, uncomplicated; Z88.6 Allergy status to analgesic agent
CPT/HCPCS: 36415; 71045; 80053; 81001; 83735; 84484; 85025; 93005; 99285; Q0162

== ENCOUNTER 2023-03-13 23:11 | Emergency (ER) | payer MEDICAID ==
[~2023-03-13] VITALS: Ht 175.3 cm; Wt 97.6 kg
[~2023-03-13 23:11] MED LIST changes: -AMLO-489 PO; +AMLO1TAB22 PO; +IBUP-1456 PO; -IBUP800T27 PO; +ONDA-144 PO
[2023-03-14] MEDS ORDERED: HYDROmorphone HCL 2 MG/ML VL/or syr IM ONE
[2023-03-14] MEDS ORDERED: ONDANSETRON ODT 4 MG TAB PO ONE
[2023-03-14 00:39] LABS: Basophils # (auto) 0 10 ^3/uL (0-0.2); Basophils % (auto) 0.3 % (0.0-2.0); Eosinophils # (auto) 0 10 ^3/uL (0-0.8); Eosinophils % (auto) 0.2 % (0.0-7.0); Hematocrit 48.7 % (41.0-53.0); Hemoglobin 16.5 g/dL (13.5-17.5); Lymphocytes # (auto) 1.8 10 ^3/uL (0.4-5.4); Lymphocytes % (auto) 15.4 % (10.0-50.0); Mean Corpuscular Hemoglobin 30.6 pg (28.0-32.0); Mean Corpuscular Hgb Conc. 33.8 g/dL (32.0-36.0); Mean Corpuscular Volume 90.5 fL (80.0-100.0); Monocytes # (auto) 0.7 10 ^3/uL (0-1.3); Monocytes % (auto) 6.3 % (0.0-12.0); Neutrophils % (auto) 77.8 % (37.0-80.0); Nucleated Red Blood Cells % 0.1 %; Red Blood Cells 5.38 10^6/uL (4.5-5.90); Red Cell Distribution Width 14.4 % (11.8-14.3); White Blood Cell 11.6 10^3/uL (4.4-10.8)
[2023-03-14] MEDS ORDERED: IOHEXOL 300 MG/ML 100ML BOTTLE IJ ONE (00:44)
[2023-03-14 01:35] LABS: Urine Bacteria NONE SEEN /hpf (None Seen); Urine Blood 3+ /uL (Negative); Urine Clarity CLOUDY (Clear); Urine Color Red (Yellow); Urine Protein, UAD 2+ (Negative); Urine Urobilinogen Normal (Negative); Urine WBC 520 /hpf (0 - 3); Urine WBC Clumps PRESENT /hpf (None Seen); Urine pH 5.5 (5.0-8.0)
[2023-03-14 01:57] LABS: Alanine Aminotransferase 22 U/L (7-40); Albumin 5.1 g/dL (3.2-4.8); Alkaline Phosphatase 75 U/L (46-116); Anion Gap 13 (5-15); Aspartate Aminotransferase 16 U/L (13-40); BUN/Creatinine Ratio 10.9 (10.0-20.0); Blood Urea Nitrogen 15 mg/dL (9-23); Calcium 9.6 mg/dL (8.7-10.4); Carbon Dioxide 22 mmol/L (20-30); Chloride 103 mmol/L (98-107); Glucose 155 mg/dL (74-106); Lipase 24 U/L (12-53); Potassium 3.2 mmol/L (3.5-5.1); Sodium 138 mmol/L (136-145)
[2023-03-14 01:58] LABS: Bilirubin, Total 0.9 mg/dL (0.2-1.0); Total Protein 8.5 g/dL (5.7-8.2)
[2023-03-14] MEDS ORDERED: ZOFR4T PO (04:29)
[2023-03-14] MEDS ORDERED: CEPH250C PO (04:29)
[2023-03-14] MEDS ORDERED: TAMS-35 PO (04:29)
[2023-03-14] MEDS ORDERED: TAMSULOSIN HYDROCHLORIDE 0.4 MG CAP PO ONE (04:30)
[2023-03-14] MEDS ORDERED: cefTRIAXone SOD 1,000 MG VL IM ONE (04:30)
[2023-03-14 04:34] LABS: Base Excess 1.2 mmol/L (-2.0-2.0)
[2023-03-14] MEDS ORDERED: LIDOCAINE 1% HCL (LOCAL ANESTH.) INJ 20ML MDV ID ONE (04:45)
[2023-03-14 05:00] VITALS: PULSE 72; O2SAT 98
[2023-03-14 05:07] VITALS: BP 133/89; PULSE 72; RESP 20; TEMP 98.2; O2SAT 98
== END 2023-03-14 05:14 | disposition home or self-care (01) ==
LOC: ER 23:11
DX: N30.81 Other cystitis with hematuria (principal); E11.9 Type 2 diabetes mellitus without complications; I10 Essential (primary) hypertension; Z88.6 Allergy status to analgesic agent
CPT/HCPCS: 36415; 74177; 80053; 81001; 83605; 83690; 83880; 84484; 85025; 96372; 99285; J0696; J1170; J2001; Q0162; Q9967

== ENCOUNTER 2024-01-19 22:56 | Emergency (ER) | payer MEDICAID ==
[~2024-01-19] VITALS: Ht 175.3 cm; Wt 93.9 kg
[~2024-01-19 22:56] MED LIST changes: +CEPH250C PO; +TAMS-35 PO; +ZOFR4T PO
[2024-01-20 01:10] VITALS: BP 130/84; TEMP 97.4
[2024-01-20 02:11] VITALS: PULSE 77; RESP 18; O2SAT 98
== END 2024-01-20 02:13 | disposition home or self-care (01) ==
LOC: ER 22:56
DX: S90.111A Contusion of right great toe without damage to nail, initial encounter (principal); M25.561 Pain in right knee; E11.9 Type 2 diabetes mellitus without complications; I10 Essential (primary) hypertension; F12.10 Cannabis abuse, uncomplicated; Z79.84 Long term (current) use of oral hypoglycemic drugs; Z85.028 Personal history of other malignant neoplasm of stomach; Z88.8 Allergy status to other drugs, medicaments and biological substances; Z98.890 Other specified postprocedural states
CPT/HCPCS: 73660

== ENCOUNTER 2024-05-29 10:30 | Emergency (ER) | payer MEDICAID ==
[~2024-05-29] VITALS: Ht 175.3 cm; Wt 94.4 kg
--- NOTE | 2024-05-29 11:07 | DVH ---
EXAM: CT Abdomen and Pelvis Without Intravenous Contrast CLINICAL INDICATION: history of gastric ca, abdominal pain, vomiting TECHNIQUE: Axial computed tomography images of the abdomen and pelvis without intravenous contrast. This CT exam was performed using one or more of the following dose reduction techniques: automated exposure control, adjustment of the mA and/or kV according to patient size, and/or use of iterative r econstruction technique. CONTRAST: COMPARISON: RELCT on DOS: 02/17/22 FINDINGS: LUNG BASES: Unremarkable. No mass. No consolidation. ABDOMEN: LIVER: Hepatomegaly with fatty infiltration. GALLBLADDER AND BILE DUCTS: Unremarkable. No calcified stones. No ductal dilation. PANCREAS: Unremarkable. No ductal dilation. SPLEEN: Unremarkable. No splenomegaly. ADRENALS: Unremarkable. No mass. KIDNEYS AND URETERS: Bilateral simple renal cysts. No stones within either kidney. No hydronephro sis. STOMACH AND BOWEL: Colonic diverticulosis. No obstruction. No mucosal thickening. PELVIS: APPENDIX: Normal appendix. BLADDER: Bladder wall thickening which may be due to the decompressed state of the bladder or due t o cystitis. No stones. REPRODUCTIVE: Unremarkable as visualized. ABDOMEN and PELVIS: INTRAPERITONEAL SPACE: Unremarkable. No free air. No significant fluid collection. BONES/JOINTS: No acute fracture. No dislocation. SOFT TISSUES: Umbilical hernia containing fat. Bilateral inguinal hernias. VASCULATURE: Unremarkable. No abdominal aortic aneurysm. LYMPH NODES: Unremarkable. No enlarged lymph nodes. OTHER FINDINGS: . . . .. IMPRESSION: 1. Normal appendix. 2. Bladder wall thickening which may be due to the decompressed state of the bladder or due to cysti tis. 3. Hepatomegaly with fatty infiltration. 4. No obstructive uropathy. 5. Umbilical hernia containing fat. 6. Bilateral inguinal hernias. 7. Bilateral simple renal cysts.
[2024-05-29 11:10] LABS: Basophils # (auto) 0 10 ^3/uL (0-0.2); Basophils % (auto) 0.4 % (0.0-2.0); Eosinophils # (auto) 0 10 ^3/uL (0-0.8); Eosinophils % (auto) 0.5 % (0.0-7.0); Hematocrit 48.7 % (41.0-53.0); Lymphocytes # (auto) 2.1 10 ^3/uL (0.4-5.4); Lymphocytes % (auto) 24.7 % (10.0-50.0); Mean Corpuscular Hemoglobin 30.8 pg (28.0-32.0); Mean Corpuscular Hgb Conc. 34.9 g/dL (32.0-36.0); Mean Corpuscular Volume 88.2 fL (80.0-100.0); Monocytes # (auto) 0.6 10 ^3/uL (0-1.3); Monocytes % (auto) 6.9 % (0.0-12.0); Neutrophils # (auto) 5.7 10 ^3/uL (1.6-8.6); Neutrophils % (auto) 67.5 % (37.0-80.0); Nucleated Red Blood Cells % 0.2 %; Platelet Count (auto) 367 10^3/uL (140-450); Red Blood Cells 5.52 10^6/uL (4.5-5.90); Red Cell Distribution Width 13.8 % (11.8-14.3); White Blood Cell 8.5 10^3/uL (4.4-10.8)
--- NOTE | 2024-05-29 11:12 | ED.PDOC ---
History of Present Illness HPI Comments 53M presents to the ER w/ prior Hx of Gastric Cancer, Gastric Cancer Sx and Hernia Sx which all may be associated to the c/c of ABD pain. Pt reports on having lower ABD pain w/ /V which all started last night and is assuming that his granddaughter gave him something from her being sick at home. Denies ch ills, fever, N/D, SOB, CP or other associated symptom's, modifiers, or recent injuries or sick contact at this time. Chief Complaint: Abdominal Pain Time Seen by MD: 10:55 Primary Care Provider: CECI HENRY Allergies: Coded Allergies: Atenolol (Verified Allergy, Unknown, 02/17/22) Lisinopril (Verified Allergy, Unknown, 02/17/22) Home Meds Active Scripts Ondansetron Odt 4MG Tab (ZOFRAN PO) 4 Mg Tb, 4 MG PO TID, #14 TAB ODT TAB-DISSOLVE IN MOUTH, THEN SWALLOW Prov:LUCY HOGAN MD 03/14/23 Tamsulosin Hcl (Flomax) 0.4 Mg Cap, 1 CAP PO DAILY, #30 CAP 11 Refills Prov:LUCY HOGAN MD 03/14/23 Cephalexin (KEFLEX CAPSULE) 250 Mg Cp, 1 CAP PO QID, #40 CAP Prov:LUCY HOGAN MD 03/14/23 Ondansetron (Zofran) 4 Mg Tab, 4 MG PO Q8HPRN PRN for 4 Days, #12 TAB Prov:KENDRA MORA MD 08/28/22 Cephalexin Monohydrate (Cephalexin) 500 Mg Cap, 500 MG PO TID for 5 Days, #20 MG Prov:ENZO GAGE DO 04/25/22 Metformin Hydrochloride (Metformin Hcl) 500 Mg Tab, 1 TAB PO BID for 30 Days, #60 TAB 0 Refills Prov:ENZO GAGE DO 04/25/22 Ibuprofen (Ibuprofen) 800 Mg Tab, 1 TAB PO Q6HPRN PRN, #30 TAB 0 Refills Prov:LEONOR GARCIA 01/14/22 Pantoprazole Sodium Sesquihydr (Protonix) 40 Mg Tab, 40 MG PO BID, #60 TAB 1 Refill Prov:GERMAN NICHOLSON MD 10/23/17 Reported Medications Amlodipine Besylate (Amlodipine Besylate) 5 Mg Tab, 5 MG PO DAILY for 30 Days, MG 10/17/17 Information Source: Patient Mode of Arrival: Ambulatory Severity: Moderate Timing: Hours Duration: Since onset, Hours Prehospital treatment: None Past Medical History PAST MEDICAL HISTORY: Cancer (Gastric), DM, HTN Surgical History: Hernia Repair Surgical History (Other): Gastric Cancer Sx Family History Family History: Reviewed,noncontributory to illness, Unknown Social History Smoker: Non-Smoker Alcohol: Denies ETOH Use Drugs: Denies Drug Use Lives In: Home Constitutional: denies: chills, diaphoresis, fatigue, fever, malaise, sweats, weakness, others EENTM: denies: blurred vision, double vision, ear bleeding, ear discharge, ear drainage, ear pain, ear ringing, eye pain, eye redness, hearing loss, mouth pain, mouth swelling, nasal discharge, nose bleeding, nose congestion, nose pain, photophobia, tearing, throat pain, throat swelling, voice changes, others Respiratory: denies: cough, hemoptysis, orthopnea, SOB at rest, shortness of breath, SOB with excertion, stridor, wheezing, others Cardiovascular: denies: chest pain, dizzy spells, diaphoresis, Dyspnea on exertion, edema, irregular heart beat, left arm pain, lightheadedness, palpitations, PND, syncope, others Gastrointestinal: reports: abdominal pain, vomiting; denies: abdomen distended, blood streaked bowels, constipated, diarrhea, dysphagia, difficulty swallowing, hematemesis, melena, nausea, poor appetite, poor fluid intake, rectal bleeding, rectal pain, others Genitourinary: denies: burning, dysuria, flank pain, frequency, hematuria, incontinence, penile discharge, penile sore, pain, testicle pain, testicle swelling, urgency, others Neurological: denies: dizziness, fainting, headache, left sided numbness, left sided weakness, numbness, paresthesia, pre-existing deficit, right sided numbness, right sided weakness, seizure, speech problems, tingling, tremors, weakness, others Musculoskeletal: denies: back pain, gout, joint pain, joint swelling, muscle pain, muscle stiffness, neck pain, others Integumetry: denies: bruises, change in color, change in hair/nails, dryness, laceration, lesions, lumps, rash, wounds, others Allergic/Immunocompromised: denies: Difficulty Healing, Frequent Infections, Hives, Itching, others Hematologic/Lymphatic: denies: anemia, blood clots, easy bleeding, easy bruising, swollen glands, others Endocrine: denies: excessive hunger, excessive sweating, excessive thirst, excessive urination, flushing, intolerance to cold, intolerance to heat, unexplained weight gain, unexplained weight loss, others Psychiatric: denies: anxiety, bipolar disorder, depression, hopeless, panic disorder, schizophrenia, sleepless, suicidal, others All Other Systems: Reviewed and Negative Physical Exam Exam Comments ABD is non-tender and the right elbow has point tenderness, no bruising, deformity or color change. General Appearance: No Apparent Distress, Normal HEENT: Normal ENT Inspection, Pharynx Normal, TMs Normal Neck: Full Range of Motion, Non-Tender, Normal, Normal Inspection Respiratory: Chest Non-Tender, Lungs Clear, No Accessory Muscle Use, No Respiratory Distress, Normal Breath Sounds Cardiovascular: No Edema, No JVD, No Murmur, No Gallop, Normal Peripheral Pulses, Regular Rate/Rhythm Breast Exam: Deferred Gastrointestinal: No Organomegaly, Non Tender, No Pulsatile Mass, Normal Bowel Sounds, Soft Genitalia: Deferred Pelvic: Deferred Rectal: Deferred Extremities: No calf tenderness, Normal capillary refill, Normal inspection, Normal range of motion, Non-tender, No pedal edema Musculoskeletal : Apperance: Normal Neurologic: Alert, natural resource technician II-XII nml as Tested, No Motor Deficits, Normal Affect, Normal Mood, No Sensory Deficits Cerebellar Function: Normal Reflexes: Normal Skin: Dry, Normal Color, Warm Lymphatic: No Adenopathy Was a procedure done? Was a procedure done?: No Differential Dx Considerations may include: gi malignancy, bowel obstruction, cystitis,, colitis, constipation, ileus, kidney stone, biliary colic, pancreatitis X-Ray, Labs, Meds, VS Vital Signs Date Time Temp Pulse Resp B/P (MAP) Pulse Ox O2 Delivery O2 Flow Rate FiO2 05/29/24 10:52 97.9 77 19 129/92 (104) 98 Lab Test 05/29/24 10:58 05/29/24 10:45 Range/Units White Blood Count 8.5 4.4-10.8 10^3/uL Red Blood Count 5.52 4.5-5.90 10^6/uL Hemoglobin 17.0 13.5-17.5 g/dL Hematocrit 48.7 41.0-53.0 % Mean Corpuscular Volume 88.2 80.0-100.0 fL Mean Corpuscular Hemoglobin 30.8 28.0-32.0 pg Mean Corpuscular Hemoglobin Concent 34.9 32.0-36.0 g/dL Red Cell Distribution Width 13.8 11.8-14.3 % Platelet Count 367 140-450 10^3/uL Mean Platelet Volume 7.1 6.9-10.8 fL Neutrophils (%) (Auto) 67.5 37.0-80.0 % Lymphocytes (%) (Auto) 24.7 10.0-50.0 % Monocytes (%) (Auto) 6.9 0.0-12.0 % Eosinophils (%) (Auto) 0.5 0.0-7.0 % Basophils (%) (Auto) 0.4 0.0-2.0 % Neutrophils # (Auto) 5.7 1.6-8.6 10 ^3/uL Lymphocytes # (Auto) 2.1 0.4-5.4 10 ^3/uL Monocytes # (Auto) 0.6 0-1.3 10 ^3/uL Eosinophils # (Auto) 0 0-0.8 10 ^3/uL Basophils # (Auto) 0 0-0.2 10 ^3/uL Nucleated Red Blood Cells 0.2 % Sodium Level 138 136-145 mmol/L Potassium Level 3.3 L 3.5-5.1 mmol/L Chloride Level 104 98-107 mmol/L Carbon Dioxide Level 26 20-31 mmol/L Anion Gap 8 5-15 Blood Urea Nitrogen 13 9-23 mg/dL Creatinine 1.19 0.700-1.30 mg/dL Glomerular Filtration Rate Calc 73 >90 mL/min BUN/Creatinine Ratio 10.9 10.0-20.0 Serum Glucose 140 H 74-106 mg/dL Calcium Level 10.4 8.7-10.4 mg/dL Total Bilirubin 0.7 0.2-1.0 mg/dL Aspartate Amino Transferase (AST) 17 13-40 U/L Alanine Aminotransferase (ALT) 22 7-40 U/L Alkaline Phosphatase 86 46-116 U/L Total Protein 8.4 H 5.7-8.2 g/dL Albumin 5.1 H 3.2-4.8 g/dL Urine Color Yellow Yellow Urine Clarity Clear Clear Urine pH 6.0 5.0-9.0 Urine Specific [place] 1.028 1.001-1.035 Urine Protein 2+ H Negative Urine Ketones Negative Negative Urine Blood 1+ H Negative /uL Urine Nitrite Negative Negative Urine Bilirubin Negative Negative Urine Urobilinogen Normal Negative mg/dL Urine Leukocyte Esterase Negative Negative /uL Urine RBC 4 0 - 3 /hpf Urine Microscopic WBC 3 0-3 /HPF Urine Squamous Epithelial Cells Few <5 /hpf Urine Bacteria Few H None Seen /hpf Urine Mucus Few None Seen Urine Glucose Normal Normal mg/dL Time of 1ST Reevaluation: 11:25 Reevaluation 1ST: Unchanged Time of 2ND Reevaluation: 12:02 Reevaluation 2ND: Resolved Patient Education/Counseling: Diagnosis, Treatment, Prognosis, Need For Follow Up Family Education/Counseling: Diagnosis, Treatment, Prognosis, Need For Follow Up, No Family Present Additional Information - The following tests were ordered, and results were reviewed by me: (Labs, X- Ray, EKG): CT, cbc, cmp, ua - I reviewed and agreed with the following test results read by other provider: CT - I discussed treatments and results with medical personnel and:daughter due to concerns for recurrent GI malignancy, bowel obstruction from previous surgeries, a workup ensued. however, the workup is unremarkable. pt is stable for discharge. i did inform him of the mild hematuria and thickened urinary bladder wall, which needs fu with his PCP Departure 1 Departure Time of Disposition: 12:04 Impression: Primary Impression: Abdominal pain Qualified Codes: R10.84 - Generalized abdominal pain Disposition: 01 HOME / SELF CARE / HOMELESS Condition: Good Discharged With: Relative Critical Care Note Critical Care Time?: No Stability Stability form required: No I personally scribed for MADY MICHAEL MD ([email or web address]) on 05/29/24 at 11:12. Electronically submitted by Dat Vann ([email or web address]). MADY MICHAEL MD May 29, 2024 11:12
[2024-05-29 11:17] LABS: Urine Bacteria FEW /hpf (None Seen); Urine Blood 1+ /uL (Negative); Urine Clarity Clear (Clear); Urine Color Yellow (Yellow); Urine Mucus FEW (None Seen); Urine Protein, UAD 2+ (Negative); Urine Specific Gravity 1.028 (1.001-1.035); Urine Squamous Epithelial Cell FEW /hpf (<5); Urine Urobilinogen Normal (Negative); Urine WBC 3 /HPF (0-3)
[2024-05-29 11:30] LABS: Alanine Aminotransferase 22 U/L (7-40); Alkaline Phosphatase 86 U/L (46-116); Anion Gap 8 (5-15); Aspartate Aminotransferase 17 U/L (13-40); BUN/Creatinine Ratio 10.9 (10.0-20.0); Bilirubin, Total 0.7 mg/dL (0.2-1.0); Blood Urea Nitrogen 13 mg/dL (9-23); Calcium 10.4 mg/dL (8.7-10.4); Carbon Dioxide 26 mmol/L (20-31); Chloride 104 mmol/L (98-107); Sodium 138 mmol/L (136-145)
[2024-05-29 11:31] LABS: Albumin 5.1 g/dL (3.2-4.8); Glucose 140 mg/dL (74-106); Potassium 3.3 mmol/L (3.5-5.1); Total Protein 8.4 g/dL (5.7-8.2)
[2024-05-29 12:45] VITALS: BP 132/93; PULSE 71; RESP 19; TEMP 98.2; O2SAT 96
== END 2024-05-29 12:47 | disposition home or self-care (01) ==
LOC: ER 10:30
DX: R10.2 Pelvic and perineal pain (principal); E11.9 Type 2 diabetes mellitus without complications; I10 Essential (primary) hypertension; Z98.890 Other specified postprocedural states
CPT/HCPCS: 36415; 74176; 80053; 81001; 85025